=== PATIENT | male | born 1995 | race Caucasian/White ===

== ENCOUNTER 2022-09-17 05:07 | Emergency (ER) | payer SELFPAY ==
[2022-09-17] MEDS ORDERED: Morphine 4 MG/ML Syringe IVPUSH ONE (05:11)
[2022-09-17] MEDS ORDERED: Sodium Chloride 0.9% 1,000 ML IV ONE (05:21)
[2022-09-17] MEDS ORDERED: Iopamidol 755 MG/ML 500 ML Multipack Bottle IVPUSH ONE (05:33)
[2022-09-17 05:46] LABS: POTASSIUM,K 3.4 mmol/L (3.5-5.1)
[2022-09-17] MEDS ORDERED: HYDROmorphone 1 MG/ML Syringe IVPUSH ONE (06:02)
[2022-09-17] MEDS ORDERED: oxyCODONE 5 MG Tab PO ONE (08:27)
[2022-09-17] MEDS ORDERED: Naloxone 4 MG Nasal Spray NAS ONE (08:50)
== END 2022-09-17 09:25 | disposition home or self-care (01) ==
LOC: MW.ED 05:07
DX: S22.21XA Fracture of manubrium, initial encounter for closed fracture (principal); R00.0 Tachycardia, unspecified; W22.8XXA Striking against or struck by other objects, initial encounter
CPT/HCPCS: 36415; 71045; 71260; 80053; 84484; 85025; 93005; 96361; 96374; 96375; 99285; A9270; J1170; J2270; J3490; J7030; Q9967